=== PATIENT | male | born 2000 | race Caucasian/White ===

== ENCOUNTER 2024-05-08 22:36 | Emergency (ER) | payer OTHER ==
[~2024-05-08] VITALS: Ht 165.1 cm; Wt 63.1 kg
[2024-05-08 22:39] VITALS: O2SAT 100
[2024-05-09] MEDS ORDERED: AMOX1TAB16 MT (01:20)
[2024-05-09] MEDS ORDERED: IBUP-2029 MT (01:20)
[2024-05-09] MEDS: KETOROLAC 30MG/ML VIAL IM ONE (01:51)
[2024-05-09] MEDS: AMOXICILLIN/POTASSIUM CLAVULANATE 875/125MG TAB PO ONE (01:57)
[2024-05-09 02:35] VITALS: BP 120/76; PULSE 82; RESP 16; TEMP 98.2
== END 2024-05-09 02:35 | disposition home or self-care (01) ==
LOC: ER 22:36
DX: K08.89 Other specified disorders of teeth and supporting structures (principal); Z98.890 Other specified postprocedural states
CPT/HCPCS: 99283; 96372; J1885